=== PATIENT | male | born 1960 | race Caucasian/White ===

== ENCOUNTER 2021-04-10 09:38 | Outpatient (CLI) | payer BC | END 2021-04-10 09:39 | disposition home or self-care (01) | LOC: RAD 09:38 | DX: N20.0 Calculus of kidney (principal) | CPT/HCPCS: 74018 ==

== ENCOUNTER 2023-04-06 11:55 | Outpatient (CLI) | payer OTHER | END 2023-04-06 11:56 | disposition home or self-care (01) | LOC: SCSMRI 11:55 | PROVIDERS: ATTEND Physician Assistant | DX: M54.50 Low back pain, unspecified (principal); N20.0 Calculus of kidney; M47.816 Spondylosis without myelopathy or radiculopathy, lumbar region; M48.061 Spinal stenosis, lumbar region without neurogenic claudication; M51.26 Other intervertebral disc displacement, lumbar region; M51.27 Other intervertebral disc displacement, lumbosacral region | CPT/HCPCS: 72110; 72148 ==